=== PATIENT | male | born 2000 | race Two or more races ===

== ENCOUNTER 2020-01-19 11:09 | Emergency (ER) | payer SELFPAY ==
[~2020-01-19] VITALS: Ht 185.4 cm; Wt 127.0 kg
[2020-01-19 13:16] VITALS: BP 130/85
== END 2020-01-19 13:17 | disposition home or self-care (01) ==
LOC: ER 11:09
DX: B34.9 Viral infection, unspecified (principal)
CPT/HCPCS: 87804; 99283